=== PATIENT | female | born 1970 | race Caucasian/White ===

== ENCOUNTER 2025-06-22 06:52 | Inpatient (IN) | payer MEDICAID, OTHER ==
[~2025-06-22] VITALS: Ht 160 cm; Wt 56.2 kg
[2025-06-22 06:58] VITALS: O2SAT 98
[2025-06-22 07:59] LABS: BASOPHILS % 0.4 % (0.0-2.0); EOSINOPHILS % 0.4 % (0.0-5.0); HEMATOCRIT. 39.6 % (36.0-48.0); HEMOGLOBIN. 13.2 g/dL (12.0-16.0); LYMPHOCYTES % 16.1 % (20.0-50.0); MEAN PLATELET VOLUME 8.9 fl (7.4-10.4); MONOCYTES % 3.7 % (2.0-8.0); NEUTROPHILS % 79.4 % (40.0-76.0); PLATELET 157 x1000/uL (130-400); RED BLOOD CELL COUNT 4.71 mill/uL (4.2-5.4); RED CELL DISTRIBUTION WIDTH 17.9 % (11.6-14.6)
[2025-06-22 08:13] LABS: CREATININE 0.7 mg/dL (0.6-1.0); UREA NITROGEN BLOOD 9 mg/dL (9-23)
[2025-06-22] MEDS: IOHEXOL-350 100 ML BOTTLE ONE (08:14)
[2025-06-22 08:15] LABS: ASPARTATE AMINOTRANSFERASE 89 IU/L (<34); BILIRUBIN DIRECT 0.2 mg/dL (<=3.0); BILIRUBIN TOTAL 0.6 mg/dL (0.1-1.0); PROTEIN TOTAL 6.2 g/dL (6.0-8.3)
[2025-06-22 08:18] LABS: INR 1.0
[2025-06-22] MEDS: KCL 10MEQ/50ML PREMIX 50 ML IV SCH (09:15)
[2025-06-22 09:29] LABS: CLARITY URINE CLEAR (CLEAR); COLOR URINE YELLOW (YELLOW); GLUCOSE URINE NEGATIVE (NEGATIVE); KETONES URINE NEGATIVE (NEGATIVE); LEUKOCYTE ESTERASE URINE NEGATIVE (NEGATIVE); NITRITE URINE NEGATIVE (NEGATIVE); OCCULT BLOOD URINE NEGATIVE (NEGATIVE); PH URINE 7.0 (4.5-8.0); PROTEIN URINE NEGATIVE (NEGATIVE); SPECIFIC GRAVITY URINE 1.021 (1.005-1.030); UROBILINOGEN URINE 0.2 E.U./dL (0.2-1.0)
[2025-06-22 09:48] LABS: *AMPHETAMINES SCREEN URINE NEGATIVE (NEGATIVE); *BARBITURATES SCREEN URINE NEGATIVE (NEGATIVE); *BENZODIAZEPINES SCREEN URINE NEGATIVE (NEGATIVE); *COCAINE SCREEN URINE NEGATIVE (NEGATIVE); CANNABINOID URINE SCREEN PRESUMPTIVE POSITIVE (NEGATIVE); ECSTASY MDMA SCREEN URINE NEGATIVE (NEGATIVE); METHADONE URINE SCREEN NEGATIVE (NEGATIVE); OPIATES URINE SCREEN NEGATIVE (NEGATIVE); PHENCYCLIDINE URINE SCREEN NEGATIVE (NEGATIVE)
[2025-06-22] MEDS: LEVETIRACETAM 1000MG PREMIX 100 ML IV NR (10:10)
[2025-06-22] MEDS: ASPIRIN 81MG TABLET PO ONE (10:10)
[2025-06-22] MEDS ORDERED: CLONIDINE 0.1MG TABLET PO PRN (10:45)
[2025-06-22] MEDS ORDERED: MAGNESIUM/ALUMINUM HYDROXIDE/SIMETHICONE 30ML UDC PO PRN (10:45)
[2025-06-22] MEDS ORDERED: DOCUSATE SODIUM 100MG CAPSULE PO PRN (10:45)
[2025-06-22] MEDS ORDERED: ACETAMINOPHEN 325MG TABLET PO PRN ×2 (10:45)
[2025-06-22] MEDS ORDERED: DEXTROSE 50% WATER 50ML SYRINGE IV PRN (10:45)
[2025-06-22] MEDS ORDERED: SODIUM CHLORIDE 0.9% 1,000 ML IV SCH (11:00)
[2025-06-22 11:45] VITALS: BP 127/79; PULSE 84; RESP 18; TEMP 36.5; O2SAT 98
[2025-06-22 12:00] VITALS: BP 130/70; PULSE 80; RESP 18; TEMP 36.5292
[2025-06-22] MEDS: BLOOD SUGAR DIAGNOSTIC STRIP TEST SCH (12:10)
[2025-06-22] MEDS: INSULIN LISPRO 100 UNITS/ML SUBCUT SCH (12:40)
[2025-06-22] MEDS ORDERED: INSU100I24 SQ (15:32)
[2025-06-22] MEDS ORDERED: LISI20TA31 PO (15:32)
[2025-06-22 16:00] VITALS: BP 99/58; PULSE 82; RESP 18; TEMP 35.9; O2SAT 98
[2025-06-22] MEDS: CLOPIDOGREL 75MG TABLET PO SCH (18:20)
[2025-06-22 20:00] VITALS: BP 108/59; PULSE 80; RESP 20; TEMP 36.2; O2SAT 96
[2025-06-22] MEDS: LEVETIRACETAM 500MG PREMIX 100 ML IV SCH (21:00)
[2025-06-22 21:02] LABS: TROPONIN I HIGH SENSITIVITY 6 ng/L (3.0-34)
[2025-06-22] MEDS: ATORVASTATIN CALCIUM 40MG TABLET PO SCH (21:57)
[2025-06-23] VITALS: BP 93/62; PULSE 71; RESP 18; TEMP 36.4; O2SAT 99
[2025-06-23 00:33] LABS: TROPONIN I HIGH SENSITIVITY 6 ng/L (3.0-34)
[2025-06-23 04:00] VITALS: BP 100/60; PULSE 71; RESP 20; TEMP 36.7; O2SAT 96
[2025-06-23 07:23] LABS: BASOPHILS % 0.4 % (0.0-2.0); EOSINOPHILS % 1.8 % (0.0-5.0); HEMATOCRIT. 31.7 % (36.0-48.0); HEMOGLOBIN. 10.6 g/dL (12.0-16.0); LYMPHOCYTES % 30.3 % (20.0-50.0); MEAN PLATELET VOLUME 9.2 fl (7.4-10.4); MONOCYTES % 6.5 % (2.0-8.0); NEUTROPHILS % 61.0 % (40.0-76.0); PLATELET 114 x1000/uL (130-400); RED BLOOD CELL COUNT 3.79 mill/uL (4.2-5.4); RED CELL DISTRIBUTION WIDTH 17.4 % (11.6-14.6)
[2025-06-23 07:31] LABS: CREATININE 0.6 mg/dL (0.6-1.0)
[2025-06-23 07:32] LABS: LDL CHOLESTEROL 76 mg/dL (5-100); TRIGLYCERIDE 63 mg/dL (0-150); UREA NITROGEN BLOOD 10 mg/dL (9-23)
[2025-06-23 08:00] VITALS: BP 122/53; PULSE 71; RESP 18; TEMP 36.6; O2SAT 100
[2025-06-23] MEDS: POTASSIUM CHLORIDE 20MEQ TABLET SR PO NR (10:09)
[2025-06-23] MEDS: POTASSIUM CHLORIDE 20MEQ/PACKET PO SCH (11:00)
[2025-06-23 12:00] VITALS: BP 121/54; PULSE 74; RESP 18; TEMP 36.5; O2SAT 98
[2025-06-23 16:00] VITALS: BP 125/79; PULSE 77; RESP 18; TEMP 36.7; O2SAT 99
[2025-06-23] MEDS: MAGNESIUM 1 G PREMIX 100 ML IV SCH (17:41)
[2025-06-23 20:00] VITALS: BP 127/64; PULSE 77; RESP 20; TEMP 36.3; O2SAT 97
[2025-06-24] VITALS: BP 120/64; PULSE 83; RESP 19; TEMP 36.2; O2SAT 97
[2025-06-24] MEDS ORDERED: PARO-41 MT (00:30)
[2025-06-24 04:00] VITALS: BP 136/84; PULSE 71; RESP 20; TEMP 37; O2SAT 98
[2025-06-24 08:00] VITALS: BP 134/76; PULSE 74; RESP 18; TEMP 35.6; O2SAT 98
[2025-06-24 08:32] LABS: BASOPHILS % 0.7 % (0.0-2.0); EOSINOPHILS % 2.0 % (0.0-5.0); HEMATOCRIT. 35.2 % (36.0-48.0); HEMOGLOBIN. 11.4 g/dL (12.0-16.0); LYMPHOCYTES % 29.9 % (20.0-50.0); MEAN PLATELET VOLUME 9.5 fl (7.4-10.4); MONOCYTES % 8.5 % (2.0-8.0); NEUTROPHILS % 58.9 % (40.0-76.0); PLATELET 118 x1000/uL (130-400); RED BLOOD CELL COUNT 4.13 mill/uL (4.2-5.4); RED CELL DISTRIBUTION WIDTH 17.4 % (11.6-14.6)
[2025-06-24 08:45] LABS: CREATININE 0.6 mg/dL (0.6-1.0); UREA NITROGEN BLOOD 12 mg/dL (9-23)
[2025-06-24 12:00] VITALS: BP 128/64; PULSE 63; RESP 18; O2SAT 99
[2025-06-24] MEDS: IBUPROFEN 800MG TABLET PO PRN (13:32)
[2025-06-24] MEDS: DEXTROSE 5% WATER 1,000 ML IV SCH (13:33)
[2025-06-24 16:00] VITALS: BP 118/67; PULSE 62; RESP 18; TEMP 37.1; O2SAT 98
[2025-06-24 20:00] VITALS: BP 130/70; PULSE 62; RESP 20; TEMP 36.5; O2SAT 97
[2025-06-25] VITALS: BP 122/72; PULSE 62; RESP 20; TEMP 36.1; O2SAT 98
[2025-06-25 04:00] VITALS: BP 130/80; PULSE 67; RESP 18; TEMP 36.1; O2SAT 97
[2025-06-25 08:00] VITALS: BP 129/66; PULSE 69; RESP 20; TEMP 36.9; O2SAT 98
[2025-06-25] MEDS ORDERED: CLOP-31 PO (11:32)
[2025-06-25] MEDS ORDERED: LIP40 PO (11:32)
[2025-06-25 12:00] VITALS: BP 133/88; PULSE 77; RESP 20; TEMP 36.6; O2SAT 100
[2025-06-25 13:26] VITALS: BP 133/88; PULSE 77; RESP 20; TEMP 97.9
== END 2025-06-25 15:38 | disposition home health service (06) | DRG 45 ==
LOC: ER 06:52 → 8WST 08:27 → EDBEDREQTM 08:30 → EDBEDREQ 08:30 → ENRESERV 11:18
PROVIDERS: ADMIT Family Medicine Adult Medicine; ATTEND Family Medicine Adult Medicine
DX: I63.9 Cerebral infarction, unspecified (principal); R56.9 Unspecified convulsions; G93.89 Other specified disorders of brain; E87.6 Hypokalemia; E11.649 Type 2 diabetes mellitus with hypoglycemia without coma; I10 Essential (primary) hypertension; F12.90 Cannabis use, unspecified, uncomplicated; E11.319 Type 2 diabetes mellitus with unspecified diabetic retinopathy without macular edema; E83.42 Hypomagnesemia; Z53.20 Procedure and treatment not carried out because of patient's decision for unspecified reasons; R47.81 Slurred speech; Z79.4 Long term (current) use of insulin
CPT/HCPCS: 36415; 70496; 70498; 70551; 71045; 80048; 80061; 80076; 80305; 80320; 81003; 82962; 83036; 83735; 84132; 84443; 84484; 85025; 92523; 92610; 93005; 93306; 93970; 97161; 97166; 99285; J1815; J1953; J3475; J3480; J7070; Q9967; G0480